=== PATIENT | female | born 1970 | race Two or more races ===

== ENCOUNTER 2017-11-04 09:20 | Day surgery (SDC) | payer MEDICARE ==
[2017-09-13 11:20] VITALS: BMI 32.1
[2017-11-04] MEDS ORDERED: Midazolam 2 MG/2 ML VIAL ONE (12:44)
[2017-11-04] MEDS ORDERED: Flumazenil 0.1 mg/ml Inj (5ml) IVP ONE (12:44)
[2017-11-04] MEDS ORDERED: Naloxone 0.4 mg/ml Inj (Adult) ONE (12:44)
[2017-11-04] MEDS ORDERED: Midazolam 2 MG/2 ML VIAL IV ONE ×3 (12:45→13:00)
[2017-11-04] MEDS ORDERED: Sodium Chloride 0.9% 1,000 ML IV SCH (13:30)
[2017-11-04 14:33] VITALS: RESP 18; TEMP 98.1; O2SAT 97
[2017-11-04 15:10] VITALS: BP 138/81; PULSE 78
--- NOTE | 2017-11-04 16:15 | CARD ---
APPROVED REPORT Date of service: 11/04/2017 EXAM: Two-dimensional and M-mode echocardiogram with Doppler and color Doppler. INDICATION /MR/LVFX/ SVT/BUBBLE STUDY 2D DIMENSIONS Left Atrium (2D)5.1 (1.6-4.0cm)IVSd1.0 (0.7-1.1cm) LVDd5.1 (3.9-5.9cm)PWd1.2 (0.7-1.1cm) LVDs3.6 (2.5-4.0cm)FS (%) 30.4 % LVEF (%)57.7 (>50%) M-Mode DIMENSIONS Aortic Root3.20 (2.2-3.7cm)Aortic Cusp Exc.1.40 (1.5-2.0cm) Aortic Valve AoV Peak Sryndtky016.0cm/sAoV VTI52.2cmAO Peak GR.34mmHg LVOT Peak Lubnlkfw86.8cm/sLVOT VTI19.80cmAO Mean GR.17mmHg Mitral Valve MV E Cssobimr577.0cm/sMV A Rieszrdy370.0cm/sMV XFL51fd E/A ratio0.9MVA (PHT)2.82cm2 TDI Lateral E' Peak V6.14cm/sE/Lateral E'22.1E/Medial E'0.0 Pulmonary Valve PV Peak Ackbkxmz76.9cm/sPV Peak Grad.2mmHg Tricuspid Valve TR Peak Hxkcskrr301bm/sRAP VTMCWBPX95xtMvZV Peak Gr.31mmHg [id number] LEFT VENTRICLE The left ventricle is normal size. There is normal left ventricular wall thickness. The left ventricular function is normal.EF-55-60% There is normal LV segmental wall motion. Transmitral Doppler flow pattern is Grade III-reversible restrictive diastolic dysfunction. No left ventricle thrombus noted on this study. There is no ventricular septal defect visualized. There is no left ventricular aneurysm. There is no mass noted in the left ventricle. RIGHT VENTRICLE The right ventricle is normal size. There is normal right ventricular wall thickness. The right ventricular systolic function is normal. ATRIA The left atrium is mildly dilated. The right atrium size is normal. The interatrial septum is intact with no evidence for an atrial septal defect, by color Flow and bubble Study. AORTIC VALVE The aortic valve is mildly to moderately sclerotic. No aortic regurgitation is present. There is mild to moderate valvular aortic stenosis., JOEL 1.5 cm2 There is no aortic valvular vegetation. MITRAL VALVE The mitral valve is moderately thickened. The anterior mitral valve leaflet appears thickened, but open well. The mitral regurgitant jet is posteriorly directed, which is consistent with anterior leaflet pathology. Mitral regurgitation is moderate to severe. There is no mitral valve stenosis. There is a partially flail anterior mitral valve leaflet. TRICUSPID VALVE The tricuspid valve leaflets are thickened , but open well. There is mild tricuspid regurgitation.RVSP-41 mmof hg. There is no tricuspid valve stenosis. There is no tricuspid valve prolapse or vegetation. PULMONIC VALVE The pulmonic valve is borderline thickened. There is trace pulmonic valvular regurgitation. There is no pulmonic valvular stenosis. GREAT VESSELS The aortic root is normal in size. The ascending aorta is normal in size. The pulmonary artery is normal. The IVC is normal in size and collapses >50% with inspiration. PERICARDIAL EFFUSION There is no pleural effusion. There is no pericardial effusion. <Conclusion> The left ventricle is normal size. There is normal left ventricular wall thickness. The left ventricular function is normal.EF-55-60% The aortic valve is mildly to moderately sclerotic. Mild to moderate , JOEL 1.5 cm2 There is a partially flail anterior mitral valve leaflet. The mitral regurgitant jet is posteriorly directed, which is consistent with anterior leaflet pathology. Mitral regurgitation is moderate to severe. There is mild tricuspid regurgitation.RVSP-41 mmof hg. There is trace pulmonic valvular regurgitation. The IVC is normal in size and collapses >50% with inspiration. There is no pericardial effusion. Intact intra atrial septum by color flow and bubble study. Note: Pt initially admitted for ROSA to Assess MR/, but ROSA probe could not be advanced, Hx of Dysphagia ( use to eat by cutting food in small pieces), Hx of severe rheumatoid arthritis with deformities, and Hx of prolong and difficult intubation and Trach, so ROSA was aborted after couple of attempts and regular Echo with bubble study done. Cc; drs. Michael Woods / Kamaljit.
--- NOTE | 2017-11-05 06:11 | DS ---
BRIEF CLINICAL HISTORY: A 47-year-old female with past medical history significant for rheumatoid arthritis. Regular echo showed mitral regurgitation with flail leaflet possible as well as aortic stenosis. Patient is scheduled for ROSA. Patient was brought to the echo lab for ROSA, but patient has a history of dysphagia and had difficulty in swallowing, used to eat food after cutting. Recently patient has endoscopy done and found to be Schatzki ring. Multiple attempts were made for ROSA, but could not advance the probe. So the procedure was aborted and changed to regular echo. The patient got some conscious sedation. Plan is to observe for routine and then we will discharge the patient. Before discharge, we will do the echo with bubble study. History of SVT. Further recommendation depending upon the echo. Anai Gutierres MD cc: Anai Mari MD
== END 2017-11-04 15:15 | disposition home or self-care (01) ==
LOC: SDSVAS 09:20
PROVIDERS: ATTEND Internal Medicine Cardiovascular Disease
DX: I08.3 Combined rheumatic disorders of mitral, aortic and tricuspid valves (principal); I47.1 Supraventricular tachycardia; K22.2 Esophageal obstruction; M06.9 Rheumatoid arthritis, unspecified
CPT/HCPCS: 84703; 93306; J2250; J3010; J7030